=== PATIENT | female | born 1940 | race Hispanic/Latino ===

== ENCOUNTER 2017-03-25 12:57 | Emergency (ER) | payer MEDICARE, OTHER ==
[2017-03-25 14:07] LABS: Basophils % (Auto) 0.7 % (0.0-1.8); Eosinophils % (Auto) 0.4 % (0.0-4.3); Hematocrit 37.6 % (30.3-42.9); Hemoglobin 12.3 gm/dl (10.1-14.3); Mean Corpuscular HGB Conc 33 % (30-34); Mean Corpuscular Hemoglobin 29 pg (28-32); Mean Corpuscular Volume 87 fl (79-97); Platelet Count 276 K/mm3 (140-440); Red Blood Count 4.33 M/mm3 (3.65-5.03); Red Cell Distribution Width 14.3 % (13.2-15.2); White Blood Count 10.4 K/mm3 (4.5-11.0)
[2017-03-25] MEDS ORDERED: DILAUDID IV ONE ×2 (14:22→17:53)
[2017-03-25] MEDS ORDERED: ZOFRAN IV ONE ×2 (14:22→17:53)
[2017-03-25] MEDS ORDERED: NACL 0.9% 500 ML 500 ML IV ONE (14:24)
[2017-03-25 14:27] LABS: Albumin 4.1 g/dL (3.9-5); Albumin/Globulin Ratio 1.5 %; Bilirubin,Total 0.6 mg/dL (0.1-1.2); Calcium 9.3 mg/dL (8.4-10.2); Chloride 102.5 mmol/L (98-107); Potassium 4.6 mmol/L (3.6-5.0); Total Protein 6.9 g/dL (6.3-8.2)
[2017-03-25 14:35] LABS: INR 1.11 (0.87-1.13)
[2017-03-25 14:36] LABS: Partial Thromboplastin Time 32.4 Sec. (24.2-36.6)
[2017-03-25 14:59] LABS: Bilirubin,Urine NEG (Negative); Blood,Urine NEG (Negative); Ketones,Urine NEG (Negative); Leukocyte Esterase,Urine NEG (Negative); Nitrite,Urine NEG (Negative); Protein,Urine <15 mg/dL mg/dL (Negative); RBC,Urine < 1.0 /HPF (0.0-6.0); Urobilinogen,Urine < 2.0 mg/dL (<2.0)
--- NOTE | 2017-03-25 15:49 | Cat Scan Report ---
CT OF THE ABDOMEN AND PELVIS WITHOUT CONTRAST HISTORY: Abdominal pain, right flank pain. TECHNIQUE: Helical CT without contrast. Sagittal and coronal reformatted images. FINDINGS: Severe right hydronephrosis and mild left hydronephrosis are unchanged since 09/20/16. There is diffuse cortical thinning throughout the right kidney. No evidence for mass or cystic disease. 1 mm calyceal stone is noted in the mid left kidney. The bladder is unremarkable. The gallbladder has been surgically removed. The liver, pancreas, spleen, adrenal glands and bowel loops are unremarkable. Normal appendix. The uterus and adnexa are unremarkable. No pelvic fluid collection or mass. Previous aortobifemoral bypass is suspected, correlate with history. Heart size is normal. The visualized lung bases are clear. No acute bony injury or suspicious bony lesion. IMPRESSION: Bilateral hydronephrosis, right greater than left. No obstructing ureteral lesion is confluent identified. This may represent ureteral strictures. Cholecystectomy. Aortic surgery. No acute inflammatory process is appreciated.
--- NOTE | 2017-03-25 17:47 | Emergency Department Report ---
ED Abdominal Pain HPI - General Chief Complaint: Abdominal Pain Stated Complaint: R FLANK PAIN W/NAUSEA/EMESIS Time Seen by Provider: 03/25/17 14:13 Source: patient, EMS Mode of arrival: Stretcher Limitations: No Limitations - History of Present Illness Initial Comments: 77-year-old female with a past medical history CAD with CABG 3, femoral aortic bypass surgery, femoral pseudoaneurysm, chronic right kidney pyelocaliectasis/ ureteralectisis, chronic hydronephrosis of left kidney presents to the hospital complains of right flank pain on and off for the year. Symptoms worsened last night and patient has had repeated episodes of nausea and vomiting with by mouth intolerance. No reports of fever, hematuria, hematochezia, or diarrhea. Family states patient has a history of an aortic aneurysm and femoral aneurysm requiring repair. No recent trauma reported. PMD: Dr. Christopher Martinez and vascular DrAyleen Rashid. Severity scale (0 -10): 0 - Related Data Home Medications Medication Instructions Recorded Confirmed Last Taken ALBUTEROL Inhaler [ProAir HFA 2 puff IH BID 09/20/16 03/25/17 09/19/16 Inhaler] Aspirin EC [Aspirin Enteric Coated 81 mg PO QDAY 09/20/16 03/25/17 09/19/16 TAB] HYDROcodone/APAP 7.5-325 0.5 tab PO PRN PRN 09/20/16 03/25/17 09/19/16 Metoprolol 100 mg PO QDAY 09/20/16 03/25/17 09/13/16 08:00 ALBUTEROL Inhaler [Proair] 2 puff IH TID PRN 03/25/17 03/25/17 Unknown Amoxicillin/K Clav Tab [Augmentin 1 tab PO Q12HR 03/25/17 03/25/17 Unknown 875 mg] Fluticasone 50 mg PO QDAY 03/25/17 03/25/17 Unknown NexIUM 40 mg PO QDAY 03/25/17 03/25/17 Unknown amLODIPine 5 mg PO BID 03/25/17 03/25/17 Unknown cloNIDine [Catapres] 0.1 mg PO QDAY PRN 03/25/17 03/25/17 Unknown Previous Rx's Medication Instructions Recorded Last Taken Type HYDROcodone/APAP 5-325 [[place] 1 each PO Q6HR PRN #20 tablet 03/25/17 Unknown Rx 5/325] Ondansetron [Zofran Odt] 4 mg PO Q8HR PRN #20 tab.rapdis 03/25/17 Unknown Rx Allergies Allergy/AdvReac Type Severity Reaction Status Date / Time No Known Allergies Allergy Verified 09/20/16 08:44 ED Review of Systems ROS: Stated complaint: R FLANK PAIN W/NAUSEA/EMESIS Other details as noted in HPI Comment: All other systems reviewed and negative Other: Constitutional: No fevers chills or weight loss Eyes: No eye pain visual changes or discharge ENT: No ear pain or throat pain Neck: Denies pain Respiratory: Denies cough wheezing shortness of breath Cardiovascular: Denies chest pain, palpitations, syncope GI: as per hpi : Denies dysuria Musculoskeletal: r flank pain Skin: Denies rash, lesions, erythema Neurologic: Denies headache, numbness, weakness Psychiatric: Denies suicidal ideation, hallucinations ED Past Medical Hx - Past Medical History Previous Medical History?: Yes Hx Hypertension: Yes Hx Heart Attack/AMI: Yes Hx Asthma: Yes Hx COPD: Yes Additional medical history: bells palsy. low flow to right kidney. triple bypass. bronchitis. Chronic right kidney pyelocaliectasis and proximal ureterectasis. History of superficial femoral artery occlusion - Surgical History Past Surgical History?: Yes Hx Open Heart Surgery: Yes Hx Cholecystectomy: Yes Additional Surgical History: triple bypass. Aortobifemoral bypass. history of left femoral pseudoaneurysm - Social History Smoking Status: Never Smoker Substance Use Type: None - Medications Home Medications: Home Medications Medication Instructions Recorded Confirmed Last Taken Type ALBUTEROL Inhaler [ProAir HFA 2 puff IH BID 09/20/16 03/25/17 09/19/16 History Inhaler] Aspirin EC [Aspirin Enteric Coated 81 mg PO QDAY 09/20/16 03/25/17 09/19/16 History TAB] HYDROcodone/APAP 7.5-325 0.5 tab PO PRN PRN 09/20/16 03/25/17 09/19/16 History Metoprolol 100 mg PO QDAY 09/20/16 03/25/17 09/13/16 08:00 History ALBUTEROL Inhaler [Proair] 2 puff IH TID PRN 03/25/17 03/25/17 Unknown History Amoxicillin/K Clav Tab [Augmentin 1 tab PO Q12HR 03/25/17 03/25/17 Unknown History 875 mg] Fluticasone 50 mg PO QDAY 03/25/17 03/25/17 Unknown History HYDROcodone/APAP 5-325 [[place] 1 each PO Q6HR PRN #20 tablet 03/25/17 Unknown Rx 5/325] NexIUM 40 mg PO QDAY 03/25/17 03/25/17 Unknown History Ondansetron [Zofran Odt] 4 mg PO Q8HR PRN #20 tab.rapdis 03/25/17 Unknown Rx amLODIPine 5 mg PO BID 03/25/17 03/25/17 Unknown History cloNIDine [Catapres] 0.1 mg PO QDAY PRN 03/25/17 03/25/17 Unknown History ED Physical Exam - General Limitations: No Limitations - Other Other exam information: General: No limitations, patient is alert in no acute distress Head exam: Atraumatic, normocephalic Eyes exam: Normal appearance, pupils equal reactive to light, extraocular movements intact ENT: Moist mucous membrane, normal oropharynx Neck exam: Normal inspection, full range of motion, no meningismus nontender Respiratory exam: Clear to auscultation bilateral, no wheezes, rales, crackles Cardiovascular: Normal rate and rhythm, normal heart sounds Abdomen: Soft, nondistended, right lower quadrant tenderness, with normal bowel sounds, no rebound, or guarding Extremity: Full range of motion normal inspection no deformity, 2+ DP pulses Back: Normal Inspection, full range of motion, right flank/CVA pain/tenderness Neurologic: Alert, oriented x3, cranial nerves intact, no motor or sensory deficit Psychiatric: normal affect, normal mood Skin: Warm, dry, intact ED Course Vital Signs 03/25/17 03/25/17 03/25/17 13:36 13:37 16:00 Temperature 98.5 F 98.2 F Pulse Rate 70 70 70 Respiratory 14 14 14 Rate Blood Pressure 177/57 155/61 [Left] Blood Pressure 164/53 [Right] O2 Sat by Pulse 100 100 100 Oximetry - Reevaluation(s) Reevaluation #1: 03/25/17 18:53 Pain improved after Dilaudid 0.1 and Zofran 4. Pain was starting to come back so additional med order prior to discharge - Consultations Consultation #1: 03/25/17 I attempted to discuss case with Dr. Rashid/vascular surgeon however, his partner Dr. Grover was operations leader and was not familiar with the patient. She also did not have access to patient's previous medical record. ED Medical Decision Making - Lab Data Result diagrams: 03/25/17 13:44 03/25/17 13:44 Lab Results 03/25/17 03/25/17 03/25/17 Range/Units 13:44 13:44 13:44 WBC 10.4 (4.5-11.0) K/mm3 RBC 4.33 (3.65-5.03) M/mm3 Hgb 12.3 (10.1-14.3) gm/dl Hct 37.6 (30.3-42.9) % MCV 87 (79-97) fl MCH 29 (28-32) pg MCHC 33 (30-34) % RDW 14.3 (13.2-15.2) % Plt Count 276 (140-440) K/mm3 Lymph % (Auto) 20.9 (13.4-35.0) % Door % (Auto) 7.1 (0.0-7.3) % Eos % (Auto) 0.4 (0.0-4.3) % Baso % (Auto) 0.7 (0.0-1.8) % Lymph # 2.2 (1.2-5.4) K/mm3 Door # 0.7 (0.0-0.8) K/mm3 Eos # 0.0 (0.0-0.4) K/mm3 Baso # 0.1 (0.0-0.1) K/mm3 Seg Neutrophils % 70.9 H (40.0-70.0) % Seg Neutrophils # 7.4 (1.8-7.7) K/mm3 PT (12.2-14.9) Sec. INR (0.87-1.13) APTT (24.2-36.6) Sec. Sodium 141 (137-145) mmol/L Potassium 4.6 (3.6-5.0) mmol/L Chloride 102.5 (98-107) mmol/L Carbon Dioxide 23 (22-30) mmol/L Anion Gap 20 mmol/L BUN 18 H (7-17) mg/dL Creatinine 1.0 (0.7-1.2) mg/dL Estimated GFR 54 ml/min BUN/Creatinine Ratio 18.00 % Glucose 111 H (65-100) mg/dL Calcium 9.3 (8.4-10.2) mg/dL Total Bilirubin 0.60 (0.1-1.2) mg/dL AST 19 (5-40) units/L ALT 10 (7-56) units/L Alkaline Phosphatase 90 (35-129) units/L Troponin T < 0.010 (0.00-0.029) ng/mL Total Protein 6.9 (6.3-8.2) g/dL Albumin 4.1 (3.9-5) g/dL Albumin/Globulin Ratio 1.5 % Lipase 23 (13-60) units/L Urine Color (Yellow) Urine Turbidity (Clear) Urine pH (5.0-7.0) Ur Specific [place] (1.003-1.030) Urine Protein (Negative) mg/dL Urine Glucose (UA) (Negative) mg/dL Urine Ketones (Negative) mg/dL Urine Blood (Negative) Urine Nitrite (Negative) Urine Bilirubin (Negative) Urine Urobilinogen (<2.0) mg/dL Ur Leukocyte Esterase (Negative) Urine WBC (Auto) (0.0-6.0) /HPF Urine RBC (Auto) (0.0-6.0) /HPF 03/25/17 03/25/17 Range/Units 14:09 14:17 WBC (4.5-11.0) K/mm3 RBC (3.65-5.03) M/mm3 Hgb (10.1-14.3) gm/dl Hct (30.3-42.9) % MCV (79-97) fl MCH (28-32) pg MCHC (30-34) % RDW (13.2-15.2) % Plt Count (140-440) K/mm3 Lymph % (Auto) (13.4-35.0) % Door % (Auto) (0.0-7.3) % Eos % (Auto) (0.0-4.3) % Baso % (Auto) (0.0-1.8) % Lymph # (1.2-5.4) K/mm3 Door # (0.0-0.8) K/mm3 Eos # (0.0-0.4) K/mm3 Baso # (0.0-0.1) K/mm3 Seg Neutrophils % (40.0-70.0) % Seg Neutrophils # (1.8-7.7) K/mm3 PT 14.2 (12.2-14.9) Sec. INR 1.11 (0.87-1.13) APTT 32.4 (24.2-36.6) Sec. Sodium (137-145) mmol/L Potassium (3.6-5.0) mmol/L Chloride (98-107) mmol/L Carbon Dioxide (22-30) mmol/L Anion Gap mmol/L BUN (7-17) mg/dL Creatinine (0.7-1.2) mg/dL Estimated GFR ml/min BUN/Creatinine Ratio % Glucose (65-100) mg/dL Calcium (8.4-10.2) mg/dL Total Bilirubin (0.1-1.2) mg/dL AST (5-40) units/L ALT (7-56) units/L Alkaline Phosphatase (35-129) units/L Troponin T (0.00-0.029) ng/mL Total Protein (6.3-8.2) g/dL Albumin (3.9-5) g/dL Albumin/Globulin Ratio % Lipase (13-60) units/L Urine Color Straw (Yellow) Urine Turbidity Clear (Clear) Urine pH 6.0 (5.0-7.0) Ur Specific [place] 1.005 (1.003-1.030) Urine Protein <15 mg/dl (Negative) mg/dL Urine Glucose (UA) Neg (Negative) mg/dL Urine Ketones Neg (Negative) mg/dL Urine Blood Neg (Negative) Urine Nitrite Neg (Negative) Urine Bilirubin Neg (Negative) Urine Urobilinogen < 2.0 (<2.0) mg/dL Ur Leukocyte Esterase Neg (Negative) Urine WBC (Auto) 1.0 (0.0-6.0) /HPF Urine RBC (Auto) < 1.0 (0.0-6.0) /HPF - Radiology Data Radiology results: report reviewed CT abdomen and pelvis noncontrast: Bilateral hydronephrosis right greater than the left. No obstructing ureteral lesion is identified. Findings represent ureteral strictures. Previous cholecystectomy. Aortic surgery/previous aortobifemoral bypass. 1 mm stone at calyceal stone in the mid left kidney. Diffuse cortical thinning throughout the right kidney. Bilateral hydronephrosis unchanged compared to 09/20/2016. - Medical Decision Making Family expresses concern for patient given that when she had similar pain a past it had a missed with multiple imaging studies until she required emergent surgery of aorta. From what I can gather it appears that previous imaging studies did show the aortic aneurysm however, they underestimated the true size of her aneurysm which was verified during her repair. Family's concern that this pain has to do with her aorta however, she has been having multiple episodes of this pain for quite some time. Patient is reluctant to take narcotics only takes a half tablet of her [place] 5 mg as needed. I explain that the imaging studies, urine, laboratory studies today were unremarkable and show her chronic kidney abnormalities and unchanged his September 2016. I informed them that I attempted to speak to the vascular doctor however, he is not operations leader and his partner is unaware the patient does not have any access to her medical records at this time. Also attempted to obtain CT angiogram more so for reassurance of the family since I felt it would be low yield. They express that patient is at risk for kidney issues after receiving IV contrast for further not to obtain the study today. Patient is pain-free at this time with medication in the ED. This pain appears to be chronic and intermittent and therefore I suggested further outpatient workup and evaluation. Additional medication for nausea and pain will be prescribed. Family and pt agree with the plan at this time. - Differential Diagnosis renal colic, uti, aortic pathology, appendicites Critical Care Time: No Critical care attestation.: If time is entered above; I have spent that time in minutes in the direct care of this critically ill patient, excluding procedure time. ED Disposition Clinical Impression: Right flank pain, Vomiting Disposition: - TO HOME OR SELFCARE Is pt being admited?: No Does the pt Need Aspirin: No Condition: Stable Instructions: Flank Pain (ED), Acute Nausea and Vomiting (ED) Additional Instructions: Take the medication as prescribed. Return if symptoms worsen. Follow-up with your physician for further management. Take the copy of your CAT scan report provided to your doctor for follow-up. Return if symptoms worsen. Prescriptions: HYDROcodone/APAP 5-325 [[place] 5/325] 1 each PO Q6HR PRN #20 tablet PRN Reason: Pain Ondansetron [Zofran Odt] 4 mg PO Q8HR PRN #20 tab.rapdis PRN Reason: Nausea And Vomiting Referrals: ADELIA MARTINEZ MD [Staff Physician] - 3-5 Days your, urologist Dr Wiley [Other] - 3-5 Days Time of Disposition: 19:01
[2017-03-25] MEDS ORDERED: NACL ONE (18:04)
[2017-03-25 19:48] VITALS: BP 148/53
== END 2017-03-25 19:48 | disposition home or self-care (01) ==
LOC: ED 12:57
DX: R10.9 Unspecified abdominal pain (principal); R11.10 Vomiting, unspecified; I10 Essential (primary) hypertension; I25.2 Old myocardial infarction; J45.909 Unspecified asthma, uncomplicated; Z79.82 Long term (current) use of aspirin
CPT/HCPCS: 36415; 74176; 80053; 81001; 83690; 84484; 85025; 85610; 85730; 93005; 93010; 96361; 96374; 96375; 96376; 99285; J1170; J2405; J7040